=== PATIENT | female | born 1985 | race Caucasian/White ===

== ENCOUNTER 2018-01-03 00:24 | Emergency (ER) | payer BC ==
[2018-01-03] MEDS ORDERED: Oseltamivir 75 MG CAP ONE (01:16)
== END 2018-01-03 01:15 | disposition home or self-care (01) ==
LOC: BURERS 00:24
DX: J11.1 Influenza due to unidentified influenza virus with other respiratory manifestations (principal); B34.9 Viral infection, unspecified; F17.200 Nicotine dependence, unspecified, uncomplicated; Z79.899 Other long term (current) drug therapy
CPT/HCPCS: 99283

== ENCOUNTER 2018-02-16 09:34 | Outpatient (CLI) | payer BC | END 2018-02-16 09:35 | disposition home or self-care (01) | LOC: BUREKG 09:34 | PROVIDERS: ATTEND Physician Assistant | DX: M51.26 Other intervertebral disc displacement, lumbar region (principal) | CPT/HCPCS: 93005; 93010 ==

== ENCOUNTER 2018-09-26 12:28 | Emergency (ER) | payer BC ==
[2018-09-26] MEDS ORDERED: Acetaminophen/Codeine 30-300mg Tablet ONE (13:01)
== END 2018-09-26 13:04 | disposition home or self-care (01) ==
LOC: BURERS 12:28
DX: R68.84 Jaw pain (principal); F17.200 Nicotine dependence, unspecified, uncomplicated; Z79.1 Long term (current) use of non-steroidal anti-inflammatories (NSAID); Z79.899 Other long term (current) drug therapy
CPT/HCPCS: 99283

== ENCOUNTER 2022-09-04 11:21 | Emergency (ER) | payer BC ==
[2022-09-04] MEDS ORDERED: methylPREDNISolone Sod Succ/PF 125 MG/2 ML VIAL ONE (11:43)
== END 2022-09-04 11:49 | disposition home or self-care (01) ==
LOC: BURERS 11:21
DX: M53.3 Sacrococcygeal disorders, not elsewhere classified (principal)
CPT/HCPCS: 96372; 99283; J2930